=== PATIENT | male | born 1960 | race Caucasian/White ===

== ENCOUNTER 2017-05-08 14:19 | Observation (INO) | payer SELFPAY ==
[~2017-05-08 14:19] MED LIST: DEXAMETHASONE SOD PHOSPHATE INJ 4 MG/1 ML VIAL ONE; GLYCOPYRROLATE INJ 0.4 MG/2 ML VIAL ONE; LIDOCAINE 2% INJ-PF (20 MG/ML) 10 ML AMPUL ONE; NEOSTIGMINE METHYLSULFATE 10 MG/10 ML VIAL ONE; ONDANSETRON HCL INJ/PF 4 MG/2 ML SDV ONE; ROCURONIUM BROMIDE INJ 50 MG/5 ML VIAL IV ONE; SUCCINYLCHOLINE CHLORIDE INJ 200 MG/10 ML VIAL ONE
[2017-05-08] MEDS ORDERED: HYDROMORPHONE HCL INJ/PF 2 MG/ML AMPULE IV ONE (15:10)
[2017-05-08] MEDS ORDERED: NORMAL SALINE 1000 ML 1,000 ML IV PRN (15:10)
[2017-05-08] MEDS ORDERED: ONDANSETRON HCL INJ/PF 4 MG/2 ML SDV IV ONE (15:10)
--- NOTE | 2017-05-08 15:13 | ER Document Report ---
ED Medical Screen (RME) - General Chief Complaint: Abdominal Pain Stated Complaint: RIGHT SIDE PAIN Time Seen by Provider: 05/08/17 15:04 Mode of Arrival: Ambulatory Information source: Patient TRAVEL OUTSIDE OF THE [place] IN LAST 30 DAYS: No - HPI Onset: Just prior to arrival Onset/Duration: Sudden, Constant Quality of pain: Sharp Severity: Moderate Associated Symptoms: Nausea, Vomiting Exacerbated by: Denies Relieved by: Denies Notes: 05/08/17 15:11 Patient is a healthy 56-year-old male who presents with acute onset of right lower quadrant abdominal pain approximately 3 hours ago. This pain started while patient was mowing the lawn. Patient reports nausea and vomiting. No known fevers. No prior history of similar episodes. No history of abdominal surgeries in the past. Patient describes pain as being "severe". - Related Data Allergies/Adverse Reactions: propoxyphene napsylate [From [employer]-N 100] Adverse Reaction (Intermediate, Verified 05/08/17 14:44) Nausea muscle relaxers Adverse Reaction (Intermediate, Uncoded 05/08/17 14:44) Nausea Past Medical History - General Information source: Patient, [facility] Records - Social History Chew tobacco use (# tins/day): No Frequency of alcohol use: None Drug Abuse: None Renal/ Medical History: Denies: Hx Peritoneal Dialysis Musculoskeltal Medical History: Reports Hx Arthritis, Reports Hx Musculoskeletal Deformity, Reports Hx Musculoskeletal Trauma Traumatic Medical History: Reports: Hx Fractures Past Surgical History: Reports: Hx Orthopedic Surgery - back and leg - Immunizations Immunizations up to date: Yes Hx Diphtheria, Pertussis, Tetanus Vaccination: Yes Review of Systems - Review of Systems Gastrointestinal: Abdominal pain, Nausea, Vomiting -: Yes All other systems reviewed and negative Physical Exam - Vital signs Vitals: Temp Pulse Resp BP Pulse Ox 98.1 F 81 16 133/87 H 96 05/08/17 14:44 05/08/17 14:44 05/08/17 14:44 05/08/17 14:44 05/08/17 14:44 Interpretation: Normal - General General appearance: Appears well, Alert In distress: Mild - Appears uncomfortable - HEENT Head: Normocephalic, Atraumatic Eyes: Normal Pupils: PERRL - Respiratory Respiratory status: No respiratory distress Chest status: Nontender Breath sounds: Normal Chest palpation: Normal - Cardiovascular Rhythm: Regular Heart sounds: Normal auscultation Murmur: No - Abdominal Inspection: Normal Distension: No distension Bowel sounds: Normal Tenderness: Tender, McBurney's point. No: Guarding, Rebound Organomegaly: No organomegaly - Back Back: Normal, Nontender - Extremities General upper extremity: Normal inspection, Nontender, Normal color, Normal ROM , Normal temperature General lower extremity: Normal inspection, Nontender, Normal color, Normal ROM , Normal temperature, Normal weight bearing. No: Monico's sign - Neurological Neuro grossly intact: Yes Cognition: Normal Orientation: AAOx4 Rylan Coma Scale Eye Opening: Spontaneous [place] Coma Scale Verbal: Oriented [place] Coma Scale Motor: Obeys Commands Rylan Coma Scale Total: 15 Speech: Normal Motor strength normal: LUE, RUE, LLE, RLE Sensory: Normal - Psychological Associated symptoms: Normal affect, Normal mood - Skin Skin Temperature: Warm Skin Moisture: Dry Skin Color: Normal Course - Re-evaluation Re-evalutation: 05/08/17 15:13 Patient will require labs and abdominal CT. Patient will be moved to the back treatment area for further evaluation and management by ED provider in that location. - Vital Signs Vital signs: Temp Pulse Resp BP Pulse Ox 98.1 F 81 16 133/87 H 96 05/08/17 14:44 05/08/17 14:44 05/08/17 14:44 05/08/17 14:44 05/08/17 14:44
[2017-05-08 15:55] LABS: ABSOLUTE BASOPHILS # (AUTO) 0.1 10^3/uL (0.0-0.2); ABSOLUTE EOSINOPHILS # (AUTO) 0.1 10^3/uL (0.0-0.6); ABSOLUTE NEUT (AUTO) 12.5 10^3/uL (1.7-8.2); BASOPHILS % (AUTO) 0.5 % (0-2); EOSINOPHILS % (AUTO) 0.3 % (0-6); HEMATOCRIT 47.3 % (37.9-51.0); HGB HCT DIFFERENCE 0.7; LYMPHOCYTES % (AUTO) 12.6 % (13-45); MEAN CORPUSCULAR HEMOGLOBIN 31.1 pg (27.0-33.4); MEAN CORPUSCULAR HGB CONC 33.8 g/dL (32.0-36.0); MEAN CORPUSCULAR VOLUME 92 fl (80-97); MONOCYTES % (AUTO) 6.6 % (3-13); RED BLOOD COUNT 5.14 10^6/uL (4.35-5.55); WHITE BLOOD COUNT 15.6 10^3/uL (4.0-10.5)
[2017-05-08 16:13] LABS: ALANINE AMINOTRANSFERASE 27 U/L (21-72); ALBUMIN 5.1 g/dL (3.5-5.0); ALKALINE PHOSPHATASE 84 U/L (38-126); ANION GAP 12 (5-19); ASPARTATE AMINO TRANSFERASE 20 U/L (17-59); BILIRUBIN,DIRECT 0.3 mg/dL (0.0-0.4); BILIRUBIN,TOTAL 0.6 mg/dL (0.2-1.3); BLOOD UREA NITROGEN 17 mg/dL (7-20); CALCIUM 10.5 mg/dL (8.4-10.2); CARBON DIOXIDE 25 mmol/L (22-30); CHLORIDE 106 mmol/L (98-107); CREATININE RESULT 0.98 mg/dL (0.52-1.25); GLUCOSE 88 mg/dL (75-110); POTASSIUM 4.8 mmol/L (3.6-5.0); TOTAL PROTEIN 8.3 g/dL (6.3-8.2)
[2017-05-08] MEDS ORDERED: MORPHINE SULFATE 10 MG/ML INJ IV ONE ×2 (17:15→18:06)
--- NOTE | 2017-05-08 17:16 | RADIOLOGY REPORT (SQ) ---
EXAM DESCRIPTION: CT ABD/PELVIS WITH IV ONLY COMPLETED DATE/TIME: 05/08/2017 5:02 pm REASON FOR STUDY: rlq abd pain COMPARISON: None. TECHNIQUE: CT scan of the abdomen and pelvis performed using helical scanning technique with dynamic intravenous contrast injection. No oral contrast. Images reviewed with lung, soft tissue, and bone windows. Reconstructed coronal and sagittal MPR images reviewed. Delayed images for evaluation of the urinary system also acquired. All images stored on PACS. All CT scanners at this facility use dose modulation, iterative reconstruction, and/or weight based d osing when appropriate to reduce radiation dose to as low as reasonably achievable (ALARA). [facility]: Dose Right [facility]: CareDose [facility]: Dose Right [facility]: Teradose 4D [facility]: [employer] CONTRAST TYPE AND DOSE: contrast/concentration: Isovue 370.00 mg/ml; Total Contrast Delivered: 59.0 ml; Total Saline Delivered: 58.0 ml RENAL FUNCTION: BUN 17, creatinine 0.98 RADIATION DOSE: Up-to-date CT equipment and radiation dose reduction techniques were employed. CTDIv ol: 4.8 - 5.6 mGy. DLP: 525 mGy-cm.. LIMITATIONS: None. FINDINGS: LOWER CHEST: No significant findings. No nodules or infiltrates. LIVER: Normal size. No masses. No dilated ducts. SPLEEN: Normal size. No focal lesions. PANCREAS: No masses. No significant calcifications. No adjacent inflammation or peripancreatic fluid collections. Pancreatic duct not dilated. GALLBLADDER: No identified stones by CT criteria. No inflammatory changes to suggest cholecystitis. ADRENAL GLANDS: No significant masses or asymmetry. RIGHT KIDNEY AND URETER: No solid masses. No significant calcifications. No hydronephrosis or hyd roureter. LEFT KIDNEY AND URETER: No solid masses. No significant calcifications. No hydronephrosis or hydr oureter. AORTA AND VESSELS: No aneurysm. No dissection. Renal arteries, SMA, celiac without stenosis. RETROPERITONEUM: No retroperitoneal adenopathy, hemorrhage or masses. BOWEL AND PERITONEAL CAVITY: There is mild proximal small bowel distention with scattered air-fluid l evels. There is no focal inflammation or bowel wall thickening. There is no free air. Air and stoo l are present within the colon. APPENDIX: Normal. PELVIS: No mass. No free fluid. Normal bladder. ABDOMINAL WALL: No masses. No hernias. BONES: No significant or acute findings. OTHER: No other significant finding. IMPRESSION: Ileus type pattern with mildly dilated small bowel and scattered air-fluid levels. No t ransition point, no free fluid or free air. TECHNICAL DOCUMENTATION: JOB ID: [id number] Quality ID # [id number]: Final reports with documentation of one or more dose reduction techniques (e.g., Au tomated exposure control, adjustment of the mA and/or kV according to patient size, use of iterative reconstruction technique) 2010 [employer]- All Rights Reserved
[2017-05-08 17:44] LABS: APPEARANCE,URINE CLEAR; BILIRUBIN,URINE NEGATIVE (NEGATIVE); GLUCOSE, URINE NEGATIVE (NEGATIVE); KETONES,URINE 20 mg/dL (NEGATIVE); LEUKOCYTE ESTERASE,URINE NEGATIVE (NEGATIVE); NITRITE,URINE NEGATIVE (NEGATIVE); PROTEIN,URINE NEGATIVE (NEGATIVE); UROBILINOGEN,URINE NEGATIVE mg/dL (<2.0)
[2017-05-08 17:45] LABS: URINE SPECIFIC GRAVITY > 1.060
[2017-05-08] MEDS ORDERED: NORMAL SALINE 1000 ML 1,000 ML IV ONE (18:00)
--- NOTE | 2017-05-08 18:11 | ER Document Report ---
ED GI/ - General Chief Complaint: Abdominal Pain Stated Complaint: RIGHT SIDE PAIN Time Seen by Provider: 05/08/17 15:04 Mode of Arrival: Ambulatory Information source: Patient Notes: Pt is a 56 year old male who presents to the ER today for abdominal pain in the right lower abdomen that began while he was mowing the lawn earlier today. Patient states that it began suddenly and has been constant since. He denies any radiation of pain including down to the testicles. He admits to multiple episodes of nausea and vomiting since the pain began. He still has his appendix. He does have a history of a hernia repair. TRAVEL OUTSIDE OF THE [place] IN LAST 30 DAYS: No - Related Data Allergies/Adverse Reactions: propoxyphene napsylate [From [employer]-N 100] Adverse Reaction (Intermediate, Verified 05/08/17 14:44) Nausea muscle relaxers Adverse Reaction (Intermediate, Uncoded 05/08/17 14:44) Nausea Home Medications: Current Home Medications Gabapentin 1,200 mg PO Q8 05/09/17 [History] Past Medical History - General Information source: Patient, ON LICENSE OF [facility] Records - Social History Smoking Status: Current Every Day Smoker Chew tobacco use (# tins/day): No Frequency of alcohol use: None Drug Abuse: None Family History: DM Patient has suicidal ideation: No Patient has homicidal ideation: No Renal/ Medical History: Denies: Hx Peritoneal Dialysis Musculoskeltal Medical History: Reports Hx Arthritis, Reports Hx Musculoskeletal Deformity, Reports Hx Musculoskeletal Trauma Traumatic Medical History: Reports: Hx Fractures Past Surgical History: Reports: Hx Orthopedic Surgery - back and leg - Immunizations Immunizations up to date: Yes Hx Diphtheria, Pertussis, Tetanus Vaccination: Yes Review of Systems - Review of Systems Constitutional: No symptoms reported. denies: Chills, Fever EENT: No symptoms reported Cardiovascular: No symptoms reported Respiratory: No symptoms reported Gastrointestinal: See HPI Genitourinary: No symptoms reported Male Genitourinary: No symptoms reported Musculoskeletal: No symptoms reported Skin: No symptoms reported Hematologic/Lymphatic: No symptoms reported Neurological/Psychological: No symptoms reported Physical Exam - Vital signs Vitals: Temp Pulse Resp BP Pulse Ox 98.1 F 81 16 133/87 H 96 05/08/17 14:44 05/08/17 14:44 05/08/17 14:44 05/08/17 14:44 05/08/17 14:44 - Notes Notes: PHYSICAL EXAMINATION: GENERAL: uncomfortable, but in no acute distress. HEAD: Atraumatic, normocephalic. EYES: Pupils equal round and reactive to light, extraocular movements intact, sclera anicteric, conjunctiva are normal. ENT: ear canals without erythema or foreign body, TMs pearly travis with good bony landmarks, nares patent, oropharynx clear without exudates. Moist mucous membranes. NECK: Normal range of motion, supple without lymphadenopathy LUNGS: CTAB and equal. No wheezes rales or rhonchi. HEART: Regular rate and rhythm without murmurs ABDOMEN: Soft,right lower quadrant tenderness. rebound tenderness, No guarding BACK: no vertebral tenderness, normal ROM GI/: no CVA tenderness EXTREMITIES: Normal range of motion, no pitting edema. No cyanosis. NEUROLOGICAL: Cranial nerves grossly intact. Normal sensory/motor exams. PSYCH: Normal mood, normal affect. SKIN: Warm, Dry, normal turgor, no rashes or lesions noted Course - Re-evaluation Re-evalutation: 05/08/17 18:11 Patient's white count is 15.6, CT with IV contrast reveals a normal appendix and a possible ileus, patient is very tender with rebound tenderness, Dr. Klein , surgeon on-call agrees to come evaluate the patient. 05/08/17 19:00 Surgeon wants to take pt to OR, pt being prepped. - Vital Signs Vital signs: Temp Pulse Resp BP Pulse Ox 98.2 F 57 L 16 112/66 97 05/09/17 10:51 05/09/17 10:51 05/09/17 10:51 05/09/17 10:51 05/09/17 10:51 - Laboratory Result Diagrams: 05/08/17 15:45 05/08/17 15:45 Laboratory results interpreted by me: 05/08/17 05/08/17 05/08/17 15:45 15:45 17:33 WBC 15.6 H Seg Neutrophils % 80.0 H Lymphocytes % 12.6 L Absolute Neutrophils 12.5 H Calcium 10.5 H Total Protein 8.3 H Albumin 5.1 H Urine Ketones 20 H Discharge - Discharge Clinical Impression: Abdominal pain Qualifiers: Abdominal location: right lower quadrant Qualified Code(s): R10.31 - Right lower quadrant pain Nausea & vomiting Qualifiers: Vomiting type: unspecified Vomiting Intractability: non-intractable Qualified Code(s): R11.2 - Nausea with vomiting, unspecified Condition: Stable Disposition: ADMITTED INPATIENT Admitting Provider: Surgicalist Unit Admitted: OR
[2017-05-08] MEDS ORDERED: ERTAPENEM SODIUM INJ 1 GM VIAL IV ONE (18:39)
--- NOTE | 2017-05-08 19:00 | PDOC H&P ---
History of Present Illness Admission Date/PCP: RAMÓN MONTEIRO MD Patient complains of: Sudden onset of right lower quadrant pain. History of Present Illness: RAMÓN ARIAS is a 56 year old male who complains of sudden onset of right lower quadrant pain of severe nature, with accompanying nausea and vomiting. Patient denies any such previous episodes, and has no history of hematemesis, melena, or hematochezia. Patient denies any trauma to his right abdomen. Patient has had a previous laparoscopic right inguinal hernia repair only. The patient arrived in the ER with severe distress, and was found to have marked right lower quadrant tenderness, guarding, and rebound. Laboratory data is within normal limits except for a slight leukocytosis of 16,000, and a CT scan revealed only some dilated loops of small bowel suggesting a localized ileus pattern, without a transition zone. Surgical referral was then made. Past Medical History Musculoskeltal Medical History: Reports: Arthritis Past Surgical History Past Surgical History: Reports: Orthopedic Surgery - back and leg Social History Smoking Status: Current Every Day Smoker Family History Family History: DM Parental Family History Reviewed: No Children Family History Reviewed: No Sibling(s) Family History Reviewed.: No Medication/Allergy Home Medications: Gabapentin Enacarbil [Horizant] 2,400 mg PO DAILY 08/24/13 Oxycodone HCl/Acetaminophen [Percocet 5-325 mg Tablet] 1 tab PO ASDIR PRN #15 tablet 08/25/13 Methylprednisolone [Medrol Dosepack (4 mg/Tab) 21 Tab/Dosepak] 4 mg PO ASDIR PRN #21 tab.ds.pk 03/31/15 Allergies/Adverse Reactions: propoxyphene napsylate [From Darvocet-N 100] Adverse Reaction (Intermediate, Verified 05/08/17 14:44) Nausea muscle relaxers Adverse Reaction (Intermediate, Uncoded 05/08/17 14:44) Nausea Physical Exam Vital Signs: Temp Pulse Resp BP Pulse Ox 98.1 F 53 L 18 127/78 H 100 05/08/17 14:44 05/08/17 18:26 05/08/17 18:26 05/08/17 18:26 05/08/17 18:26 Intake & Output 05/07/17 05/08/17 05/09/17 06:59 06:59 06:59 Weight 54.9 kg General appearance: PRESENT: cooperative, mild distress, thin, well-developed, well-nourished Head exam: PRESENT: atraumatic, normocephalic Eye exam: PRESENT: EOMI, PERRLA Mouth exam: PRESENT: moist, neck supple, tongue midline Neck exam: PRESENT: full ROM. ABSENT: JVD, lymphadenopathy, tenderness, thyromegaly, tracheal deviation Respiratory exam: PRESENT: clear to auscultation kwaku, unlabored Cardiovascular exam: PRESENT: RRR GI/Abdominal exam: PRESENT: guarding, hyperactive bowel sounds, rebound, soft, tenderness - Marked tenderness, guarding, and rebound in the right lower quadrant Rectal exam: PRESENT: deferred Neurological exam: PRESENT: alert, awake, oriented to person, oriented to place , oriented to time, oriented to situation, reflexes normal, CN II-XII grossly intact, motor sensory deficit, normal gait Psychiatric exam: PRESENT: appropriate affect Skin exam: PRESENT: intact, normal color, warm Results Laboratory Results: 05/08/17 15:45 05/08/17 15:45 05/08/17 05/08/17 05/08/17 15:45 15:45 17:33 WBC 15.6 H RBC 5.14 Hgb 16.0 Hct 47.3 MCV 92 MCH 31.1 MCHC 33.8 RDW 13.0 Plt Count 312 Seg Neutrophils % 80.0 H Lymphocytes % 12.6 L Monocytes % 6.6 Eosinophils % 0.3 Basophils % 0.5 Absolute Neutrophils 12.5 H Absolute Lymphocytes 2.0 Absolute Monocytes 1.0 Absolute Eosinophils 0.1 Absolute Basophils 0.1 Sodium 143.0 Potassium 4.8 Chloride 106 Carbon Dioxide 25 Anion Gap 12 BUN 17 Creatinine 0.98 Est GFR ( Amer) > 60 Est GFR (Non-Af Amer) > 60 Glucose 88 Calcium 10.5 H Total Bilirubin 0.6 AST 20 ALT 27 Alkaline Phosphatase 84 Total Protein 8.3 H Albumin 5.1 H Urine Color YELLOW Urine Appearance CLEAR Urine pH 5.0 Ur Specific [place] > 1.060 Urine Protein NEGATIVE Urine Glucose (UA) NEGATIVE Urine Ketones 20 H Urine Blood NEGATIVE Urine Nitrite NEGATIVE Ur Leukocyte Esterase NEGATIVE Urine WBC (Auto) 1 Urine RBC (Auto) 4 Impressions: Abdomen/Pelvis CT 05/08/17 15:10 IMPRESSION: Ileus type pattern with mildly dilated small bowel and scattered air-fluid levels. No transition point, no free fluid or free air. Assessment & Plan - Plan Summary Plan Summary: Patient will be taken to the operating room for immediate exploratory laparotomy for an acute abdomen.
[2017-05-08] MEDS ORDERED: BUPIVACAINE HCL 0.5 % INJ/PF 30 ML SDV ONE (19:08)
[2017-05-08] MEDS ORDERED: FENTANYL CITRATE INJ/PF 250 MCG/5 ML AMPULE ONE (19:14)
[2017-05-08] MEDS ORDERED: EPHEDRINE SULFATE INJ 50 MG/1 ML AMPULE ONE (19:14)
[2017-05-08] MEDS ORDERED: MIDAZOLAM 2 MG/2 ML INJ ONE (19:14)
[2017-05-08] MEDS ORDERED: HYDROMORPHONE HCL INJ/PF 2 MG/ML AMPULE ONE (19:15)
[2017-05-08] MEDS ORDERED: PROPOFOL INJ 200 MG/20 ML VIAL IV ONE (19:15)
[2017-05-08] MEDS ORDERED: IBUPROFEN INJ 800 MG/8 ML VIAL IV ONE (19:15)
--- NOTE | 2017-05-08 19:50 | EKG REPORT ---
SEVERITY:- OTHERWISE NORMAL ECG - SINUS BRADYCARDIA : Confirmed by: Paul Tatum MD 08-May-2017 19:49:39
[2017-05-08] MEDS ORDERED: ONDANSETRON HCL INJ/PF 4 MG/2 ML SDV IV PRN (20:47)
[2017-05-08] MEDS ORDERED: MORPHINE SULFATE 10 MG/ML INJ IV PRN (20:47)
--- NOTE | 2017-05-08 20:57 | Operative Report ---
Operative Report DATE OF SURGERY: 05/08/17 PREOPERATIVE DIAGNOSIS: Acute Abdomen POSTOPERATIVE DIAGNOSIS: Negative laparotomy OPERATION: Exploratory laparotomy for acute abdomen, appendectomy. SURGEON: TETE HAYS ANESTHESIA: GA TISSUE REMOVED OR ALTERED: Appendix. COMPLICATIONS: None. ESTIMATED BLOOD LOSS: Negligible INTRAOPERATIVE FINDINGS: Negative laparotomy. PROCEDURE: Exploratory laparotomy
[2017-05-08] MEDS ORDERED: MORPHINE SULFATE 10 MG/ML INJ ONE (21:16)
[2017-05-08] MEDS ORDERED: PROMETHAZINE HCL INJ 25 MG/1 ML VIAL IV PRN (21:18)
[2017-05-08] MEDS ORDERED: ENOXAPARIN SODIUM INJ 40 MG/0.4 ML DISP.SYRIN SUBCUT ONE (22:00)
--- NOTE | 2017-05-08 22:34 | OPERATIVE REPORT E ---
Operative Report NAME: RAMÓN ARIAS : 1960 AGE: 56Y DATE OF SURGERY: 05/08/2017 ROOM: 212 PREOPERATIVE DIAGNOSIS: Acute abdomen. POSTOPERATIVE DIAGNOSIS: Negative laparotomy. OPERATION: Exploratory laparotomy for acute abdomen, appendectomy. SURGEON: TETE HAYS M.D. ANESTHESIA: General. REPLACEMENT: Crystalloids. DRAINS: None. COMPLICATIONS: None. CONDITION: Stable. INDICATION FOR PROCEDURE: This 56-year-old male was in his usual state of health, and while riding his lawnmower today developed the sudden onset of severe, right lower quadrant pain which was disabling in nature and 10/10 in intensity. The patient arrived to the emergency room in acute distress, in severe pain in the right lower quadrant, and was given initially morphine 10 mg. The patient was found to have a white count of 15,600 with normal chemistries. The patient's abdominal exam revealed marked right lower quadrant tenderness, guarding, and rebound. The patient underwent CT scan of the abdomen, which showed only dilated loops of small bowel and the ileus in a nonobstructive pattern. For this reason, because of the dramatic onset of pain and the intensity of this pain, the patient was taken to the operating room for exploratory laparotomy. PROCEDURE: Patient was brought to the operating suite and placed in supine position on the operating table. Monitoring devices were attached, IV sedation was administered, followed by the induction of general endotracheal anesthesia. The patient's abdomen was prepped and draped in the usual sterile manner, and then a timeout was achieved. After all concurred, an infraumbilical midline incision was made. The incision was carried through the skin and subcutaneous tissue down to the linea alba. The linea alba was opened. The peritoneal lining was opened, and the abdominal cavity was entered. Upon entering the cavity, we came across no evidence of any pathology. There was no fluid in the pelvis. There was no evidence of an appendicolith. There was no evidence of ischemia. There was no fluid collection. There was no purulence. There were absolutely no abnormal findings discovered. We ran the small bowel from the ligament of Treitz to the ileocecal junction. We inspected the right transverse descending and sigmoid colon and rectum. We looked at the retroperitoneum *------* peritoneum, which was quite thin, and we noted no evidence of any inflammation, infection, perforation, or any other abnormalities in the intestines, and the entire intraabdominal viscera looked quite pristine. We decided to do an appendectomy. We grasped the appendix with a [place] and made an opening in the mesoappendix and divided the mesoappendix and tied it off using 0 silk. We then placed 2 clamps on the appendix and divided the appendix between the clamps and tied off the distal appendix using 0 Vicryl, and the appendiceal stump was cauterized. After performing our appendectomy, we again looked for any evidence of inflammation, infection, purulence, or abnormal fluid in the pelvis, of which there was none. We again inspected the entire colon, small bowel, and looked at the retroperitoneum, and they all appeared normal. It was suspected that perhaps the patient may have passed a ureteral stone that caused this degree of pain, but there was no intraabdominal pathology. We then proceeded to close the abdomen, after being satisfied that this was a negative laparotomy, and we approximated the fascia using #1 PDS, and the skin was approximated with skin elan. The patient tolerated the procedure well. Sponge and instrument count was correct. The patient was discharged to the PACU in stable condition. DICTATING PHYSICIAN: TETE HAYS M.D. [id number] PHY#: [id number] ID: [id number] JOB#: [id number] ACCT: [id number] cc:TETE HAYS M.D. >
[2017-05-08] MEDS: NORMAL SALINE 1000 ML 1,000 ML IV PRN (23:00)
[2017-05-08] MEDS: OXYCODONE-ACETAMINOPHEN 5-325 MG TABLET PO PRN (23:49)
[2017-05-09] MEDS: OXYCODONE-ACETAMINOPHEN 5-325 MG TABLET PO PRN (09:05)
[2017-05-09] MEDS: NORMAL SALINE 1000 ML 1,000 ML IV PRN (09:12)
--- NOTE | 2017-05-09 09:26 | PDOC PROGRESS REPORT ---
Subjective Progress Note for:: 05/09/17 Subjective:: Feels well. Preoperative abdominal pain is resolved. Passing gas. Tolerating a diet well. Physical Exam Vital Signs: Temp Pulse Resp BP Pulse Ox 98.2 F 54 L 18 120/66 97 05/09/17 07:29 05/09/17 07:29 05/09/17 07:29 05/09/17 07:29 05/09/17 07:29 Intake & Output 05/08/17 05/09/17 05/10/17 06:59 06:59 06:59 Intake Total 900 Output Total 75 350 Balance -75 550 General appearance: PRESENT: no acute distress, cooperative Respiratory exam: PRESENT: clear to auscultation kwaku Cardiovascular exam: PRESENT: RRR GI/Abdominal exam: PRESENT: other - Soft, nondistended, minimal tenderness. Wounds clean dry and intact with no erythema. Extremities exam: PRESENT: other - No swelling Results Impressions: Abdomen/Pelvis CT 05/08/17 15:10 IMPRESSION: Ileus type pattern with mildly dilated small bowel and scattered air-fluid levels. No transition point, no free fluid or free air. Assessment & Plan - Diagnosis (1) Abdominal pain Qualifiers: Abdominal location: right lower quadrant Qualified Code(s): R10.31 - Right lower quadrant pain Is this a current diagnosis for this admission?: YesPlan: Doing well. Status post exploratory laparotomy. Tolerating a diet well. Passing gas. Ambulating. Will discharge patient home with follow-up at also surgical clinic next week.
--- NOTE | 2017-05-09 09:57 | DISCHARGE SUMMARY E ---
Discharge Summary NAME: RAMÓN ARIAS : 1960 AGE: 56Y ADMITTED: 05/08/2017 DISCHARGED: 05/09/2017 DISCHARGE DIAGNOSIS: Abdominal pain. PROCEDURE PERFORMED DURING HOSPITALIZATION: Exploratory laparotomy with incidental appendectomy performed by Dr. Klein on 05/08/2017. HOSPITAL COURSE: Patient underwent the above-mentioned surgery. He was noted with no significant intra-abdominal findings. He underwent an appendectomy at the same time. Patient did well postoperatively, had resolution of his abdominal pain. Patient was tolerating a diet and was passing gas. Patient has now been discharged to home in good condition. He is encouraged to stay active at home but avoid strenuous activity. He is to follow up with [facility] next week for staple removal. DISCHARGE MEDICATIONS: Resume his gabapentin. Additional medication is Percocet 1 p.o. every 4 hours p.r.n. pain. DICTATING PHYSICIAN: PATTI FREDERICK M.D. [id number] PHY#: [id number] ID: [id number] JOB#: [id number] ACCT: [id number] cc:Elli NIELSEN D.O. >
[2017-05-09] MEDS ORDERED: ENOXAPARIN SODIUM INJ 40 MG/0.4 ML DISP.SYRIN SUBCUT SCH (10:00)
[2017-05-09] MEDS ORDERED: ENOXAPARIN SODIUM INJ 100 MG/1 ML DISP.SYRIN SUBCUT SCH (10:00)
[2017-05-09 11:00] VITALS: BP 112/66
== END 2017-05-09 11:10 | disposition home or self-care (01) ==
LOC: ER 14:19 → UNDOADMIN 18:54 → EH 18:54 → 2N 21:57 → INTOOBSV 22:31 → 2N 22:31 → EH 22:31
PROC: 0DTJ0ZZ Resection of Appendix, Open Approach (ICD-10-PCS; 2017-05-08)
PROC: 0WJP0ZZ Inspection of Gastrointestinal Tract, Open Approach (ICD-10-PCS; principal; 2017-05-08 20:00)
DX: R10.31 Right lower quadrant pain (principal); R10.814 Left lower quadrant abdominal tenderness; R10.823 Right lower quadrant rebound abdominal tenderness; R11.2 Nausea with vomiting, unspecified; F17.210 Nicotine dependence, cigarettes, uncomplicated; Z98.890 Other specified postprocedural states
CPT/HCPCS: 99285; 96361; 96374; 96375; 36415; 85025; 80053; 81001; 88304 ×2; 74177; 93005; 93010; 49000; 44950; J2250; J3490 ×2; J1100; J3010; J1335; J2270 ×2; J1650 ×2; J1170; J0330; J2405; J7030 ×2; J2704; J1741; 840; G0378

== ENCOUNTER 2020-05-19 11:48 | Emergency (ER) | payer SELFPAY ==
[2020-05-19] MEDS ORDERED: IPRATROPIUM/ALBUTEROL 0.5-2.5 MG/3 ML AMPUL NEB ONE (14:03)
[2020-05-19] MEDS ORDERED: ASPIRIN 81 MG TABLET, CHEWABLE PO ONE (14:03)
[2020-05-19] MEDS ORDERED: NORMAL SALINE 1000 ML 1,000 ML IV ONE (14:03)
--- NOTE | 2020-05-19 14:08 | ER Document Report ---
ED Respiratory Problem - General Chief Complaint: Flu Symptoms Stated Complaint: COUGH Time Seen by Provider: 05/19/20 13:51 Primary Care Provider: RAMÓN MONTEIRO MD [Primary Care Provider] - Follow up as needed Mode of Arrival: Ambulatory Information source: Patient Notes: Patient presents complaining of cough for the past 10 days with chest tightness and difficulty breathing for the past week. Patient denies any fever. Patient denies any nausea or vomiting. Patient is concerned about possible coronavirus and would like to be tested. TRAVEL OUTSIDE OF THE [place] IN LAST 30 DAYS: No - HPI Patient complains to provider of: Chest pain, Cough, Short of breath Onset: Just prior to arrival Quality of pain: Other - tightness Pain Level: 5 Context: Smoker. denies: Hx asthma, Hx CHF, Hx COPD, Recent immobilization Associated symptoms: Chest pain/discomfort, Cough, Short of breath. denies: Anxiety, Congestion, Fever, Headache Similar symptoms previously: Yes Recently seen / treated by doctor: No - Related Data Allergies/Adverse Reactions: diphenhydramine [From Benadryl] Allergy (Verified 05/19/20 15:15) propoxyphene napsylate [From Darvocet-N 100] Adverse Reaction (Intermediate, Verified 05/19/20 15:14) Nausea muscle relaxers Adverse Reaction (Intermediate, Uncoded 05/19/20 15:15) Nausea Past Medical History - General Information source: Patient - Social History Smoking Status: Current Every Day Smoker Frequency of alcohol use: None Drug Abuse: None Occupation: [employer] Lives with: Family Family History: DM Neurological Medical History: Reports: Other - Neuropathy Renal/ Medical History: Denies: Hx Peritoneal Dialysis Musculoskeletal Medical History: Reports Hx Arthritis, Reports Hx Musculoskeletal Deformity, Reports Hx Musculoskeletal Trauma Traumatic Medical History: Reports: Hx Fractures Past Surgical History: Reports: Hx Orthopedic Surgery - back and leg - Immunizations Immunizations up to date: Yes Hx Diphtheria, Pertussis, Tetanus Vaccination: Yes Review of Systems - Review of Systems Constitutional: Recent illness - Cough for the past 10 days. denies: Fever EENT: No symptoms reported Cardiovascular: Chest pain. denies: Lightheaded Respiratory: Cough, Short of breath, Sputum - Occasional Gastrointestinal: No symptoms reported. denies: Abdominal pain, Nausea, Vomiting Genitourinary: No symptoms reported Male Genitourinary: No symptoms reported Musculoskeletal: No symptoms reported. denies: Back pain Skin: No symptoms reported Hematologic/Lymphatic: No symptoms reported Neurological/Psychological: No symptoms reported Physical Exam - Vital signs Vitals: Temp Pulse Resp BP Pulse Ox 98.3 F 65 18 119/78 96 05/19/20 12:23 05/19/20 12:23 05/19/20 12:23 05/19/20 12:23 05/19/20 12:23 - General General appearance: Appears well, Alert In distress: None - HEENT Head: Normocephalic, Atraumatic Eyes: Normal Conjunctiva: Normal Nasal: Normal Mouth/Lips: Normal Mucous membranes: Normal Pharynx: Normal Neck: Normal, Supple. No: Lymphadenopathy - Respiratory Respiratory status: No respiratory distress Chest status: Tender, Pain with cough Breath sounds: Nonproductive cough, Wheezing - Faint scattered Chest palpation: Normal - Cardiovascular Rhythm: Regular Heart sounds: S1 appreciated, S2 appreciated Murmur: No - Abdominal Inspection: Normal Distension: No distension Bowel sounds: Normal Tenderness: Nontender Organomegaly: No organomegaly - Back Back: Normal, Nontender. No: CVA tenderness - Extremities General upper extremity: Normal inspection, Normal strength General lower extremity: Normal inspection, Normal strength - Neurological Neuro grossly intact: Yes Cognition: Normal [place] Coma Scale Eye Opening: Spontaneous [place] Coma Scale Verbal: Oriented [place] Coma Scale Motor: Obeys Commands [place] Coma Scale Total: 15 - Psychological Associated symptoms: Normal affect, Normal mood - Skin Skin Temperature: Warm Skin Moisture: Dry Skin Color: Normal Course - Re-evaluation Re-evalutation: 05/19/20 16:37 The patient was evaluated during the global Covid 19 pandemic, and that diagnosis was suspected/considered upon their initial presentation. Their evaluation, treatment and testing was consistent with current guidelines for patients who present with complaints or symptoms that may be related to Covid 19. Patient presents with upper respiratory symptoms worrisome for possible Covid 19. Patient does not have emergency worrying symptoms such as difficulty breathing, shortness of breath, chest pain, pressure, confusion or cyanosis. Patient appears suitable for discharge as they are not of an advanced age, do not have any chronic medical conditions such as diabetes, CAD, immune deficienc y, chronic lung disease or chronic kidney disease. Patient's vital signs are stable and patient is nontoxic in appearance. Good return precautions have been discussed with patient, patient verbalized understanding and is agreeable with discharge plan of care at this time. Presentation of chest pain in an otherwise well appearing patient. Low clinical suspicion for ACS given clinical history, exam, EKG without ST elevations or depressions, and negative initial troponin. HEART score less than or equal to 3. PE also seems unlikely given clinical history, absence of tachycardia. No elevation in d-dimer. CXR without evidence of pneumothorax or pneumonia. No widened mediastinum. Chest pain in a patient without evidence of cardiac or other serious etiology on workup today. I discussed with patient that, based on their age, risk factors and emergency department testing today, the likelihood that their symptoms are related to a heart attack is very low. The patient demonstrates decision making capacity and has verbalized an understanding of these risks to me. Based on this, the patient has chosen to follow-up as an outpatient. Usual chest pain return precautions reviewed. The patient states understanding and agreement with this plan. - Vital Signs Vital signs: Temp Pulse Resp BP Pulse Ox 98.3 F 45 L 20 139/88 H 100 05/19/20 15:00 05/19/20 14:54 05/19/20 16:01 05/19/20 16:01 05/19/20 16:01 - Laboratory Result Diagrams: 05/19/20 14:40 05/19/20 14:40 Laboratory results interpreted by me: 05/19/20 14:40 Sodium 136.7 L - Diagnostic Test Radiology reviewed: Reports reviewed - EKG Interpretation by Me EKG shows normal: Sinus rhythm Rate: Bradycardia When compared to previous EKG there are: No significant change Additional EKG results interpreted by me: 05/19/20 16:36 Sinus bradycardia with a rate of 41, QTc 377, no acute ischemic changes Discharge - Discharge Clinical Impression: Chest pain Qualifiers: Chest pain type: unspecified Qualified Code(s): R07.9 - Chest pain, unspecified Upper respiratory infection Qualifiers: URI type: unspecified URI Qualified Code(s): J06.9 - Acute upper respiratory infection, unspecified Condition: Stable Disposition: HOME, SELF-CARE Instructions: COVID-19 Guidance for Persons Under Investigation, Bronchitis With Bronchospasm (Wheezing) ([facility]), Chest Pain of Unclear Cause ([facility]), Upper Respiratory Illness ([facility]) Additional Instructions: Return immediately for any new or worsening symptoms Followup with your primary care provider, call tomorrow to make a followup appointment Home quarantine as per instructions Prescriptions: Prednisone [Deltasone 10 mg Tablet] 10 mg PO ASDIR #21 tablet Albuterol Sulfate [Proair Hfa Inhalation Aerosol 8.5 gm Mdi] 2 puff IH Q4 PRN #1 mdi PRN Reason: Benzonatate [Tessalon Perles 100 mg Capsule] 100 mg PO ASDIR PRN #20 capsule PRN Reason: Referrals: RAMÓN MONTEIRO MD [Primary Care Provider] - Follow up as needed
--- NOTE | 2020-05-19 14:45 | RADIOLOGY REPORT (SQ) ---
EXAM DESCRIPTION: CHEST SINGLE VIEW IMAGES COMPLETED DATE/TIME: 05/19/2020 1:08 pm REASON FOR STUDY: SOB COMPARISON: None. EXAM PARAMETERS: NUMBER OF VIEWS: One view. TECHNIQUE: Single frontal radiographic view of the chest acquired. RADIATION DOSE: NA LIMITATIONS: None. FINDINGS: LUNGS AND PLEURA: No opacities, masses or pneumothorax. No pleural effusion. MEDIASTINUM AND HILAR STRUCTURES: No masses. Contour normal. HEART AND VASCULAR STRUCTURES: Heart normal in size. Normal vasculature. BONES: No acute findings. HARDWARE: None in the chest. Partial visualization cervical spine fixation. OTHER: No other significant finding. IMPRESSION: NO ACUTE RADIOGRAPHIC FINDING IN THE CHEST. TECHNICAL DOCUMENTATION: JOB ID: [id number] 2010 [employer]- All Rights Reserved Reading location - IP/workstation name: [email or web address]
[2020-05-19 15:11] LABS: ABSOLUTE BASOPHILS # (AUTO) 0.1 10^3/uL (0.0-0.2); ABSOLUTE EOSINOPHILS # (AUTO) 0.1 10^3/uL (0.0-0.6); ABSOLUTE LYMPHOCYTES (AUTO) 2.3 10^3/uL (0.5-4.7); ABSOLUTE MONOCYTES (AUTO) 0.7 10^3/uL (0.1-1.4); ABSOLUTE NEUT (AUTO) 5.5 10^3/uL (1.7-8.2); BASOPHILS % (AUTO) 0.8 % (0-2); EOSINOPHILS % (AUTO) 1.7 % (0-6); HEMATOCRIT 42.4 % (37.9-51.0); HEMOGLOBIN 14.4 g/dL (13.5-17.0); LYMPHOCYTES % (AUTO) 26.7 % (13-45); MEAN CORPUSCULAR HEMOGLOBIN 31.8 pg (27.0-33.4); MEAN CORPUSCULAR HGB CONC 34.1 g/dL (32.0-36.0); MEAN CORPUSCULAR VOLUME 93 fl (80-97); MONOCYTES % (AUTO) 7.5 % (3-13); PLATELET COUNT 283 10^3/uL (150-450); RED BLOOD COUNT 4.54 10^6/uL (4.35-5.55); RED CELL DISTRIBUTION WIDTH 13.4 % (11.5-14.0); SEGMENTED NEUTROPHILS % (AUTO) 63.3 % (42-78); TOTAL CELLS COUNTED % (AUTO) 100 %; WHITE BLOOD COUNT 8.7 10^3/uL (4.0-10.5)
[2020-05-19 15:14] LABS: APPEARANCE,URINE CLEAR; BILIRUBIN,URINE NEGATIVE (NEGATIVE); COLOR,URINE STRAW; GLUCOSE, URINE NEGATIVE (NEGATIVE); KETONES,URINE NEGATIVE (NEGATIVE); LEUKOCYTE ESTERASE,URINE NEGATIVE (NEGATIVE); NITRITE,URINE NEGATIVE (NEGATIVE); PROTEIN,URINE NEGATIVE (NEGATIVE); URINE SPECIFIC GRAVITY 1.009; UROBILINOGEN,URINE NEGATIVE mg/dL (<2.0)
[2020-05-19 15:30] LABS: ALBUMIN 4.4 g/dL (3.5-5.0); ALKALINE PHOSPHATASE 64 U/L (38-126); ANION GAP 6 (5-19); ASPARTATE AMINO TRANSFERASE 23 U/L (17-59); BILIRUBIN,TOTAL 0.4 mg/dL (0.2-1.3); BLOOD UREA NITROGEN 10 mg/dL (7-20); CALCIUM 9.3 mg/dL (8.4-10.2); CARBON DIOXIDE 27 mmol/L (22-30); CHLORIDE 104 mmol/L (98-107); CREATINE KINASE 89 U/L (55-170); GLUCOSE 94 mg/dL (75-110); POTASSIUM 4.3 mmol/L (3.6-5.0)
[2020-05-19 17:03] VITALS: BP 139/88
--- NOTE | 2020-05-20 01:12 | EKG REPORT ---
SEVERITY:- ABNORMAL ECG - SINUS BRADYCARDIA LEFT VENTRICULAR HYPERTROPHY : Confirmed by: Fabiola Mcdermott 20-May-2020 01:11:50
== END 2020-05-19 17:03 | disposition home or self-care (01) ==
LOC: ER 11:48
DX: J06.9 Acute upper respiratory infection, unspecified (principal); R05 Cough; R07.89 Other chest pain; R06.2 Wheezing; R00.1 Bradycardia, unspecified; F17.200 Nicotine dependence, unspecified, uncomplicated; Z88.8 Allergy status to other drugs, medicaments and biological substances; Z20.828 Contact with and (suspected) exposure to other viral communicable diseases
CPT/HCPCS: 93005; 94640; 99284; 96360; 36415; 82550; 83735; 85025; 87635; 80053; 81001; 84484; 85379; 71045; 93010; J7030; C9803